=== PATIENT | male | born 1985 | race Caucasian/White ===

== ENCOUNTER → 2018-06-30 | Outpatient (CLI) | payer BC, MEDICAID ==
[2013-11-08 12:06] VITALS: BP 124/95
[~2018-06-30] MED LIST: ADDERALL30 MG PO; AMPHETAMINE MIX PO; ATENOLOL100 MG PO; BACTRIM DS 8001 TAB PO; CARAFATE 1GM1 G PO; CLONAZEPAM1 MG PO; COMPLERA 200 MG1 TAB PO; CYMBALTA 60MG60 MG PO; ENALAPRIL20 MG PO; FLUOXETINE40 MG PO; GABAPENTIN100 MG PO; HALCION0.25 M1 PO; LATUDA60 MG PO; MAALOX MAX + ANT1 ML PO; MARINOL10 MG PO; METOPROLOL SUC100 M1 PO; PERCOCET 325 MG1 TA2 PO; PERCOCET 325 MG1 TAB PO; PROZAC40 MG PO; TOPAMAX100 MG PO; TRAZADONE HYDR100 MG PO; VENTOLIN0.09 MG IH; XANAX1 MG PO; ZOFRAN 8MG8 MG PO; ZYPREXA10 MG PO
[2018-06-30 12:00] LABS: EOS # 0.1 (0.04-0.40); EOS % 1.9 % (0.0-4.0); HEMATOCRIT 38.4 % (42.0-52.0); HEMOGLOBIN 12.9 g/dL (13.5-18.0); LYMPH# 1.9 (1.50-4.00); MEAN CELL VOLUME 88 fl (78-100); MEAN CORPUSCULAR HEMOGLOBIN 29 pg (27-31); MEAN CORPUSCULAR HGB CONC 34 g/dL (33-37); MEAN PLATELET VOLUME 8.7 fl (7.4-10.4); MONO # 0.7 (0.20-0.80); NEU # 3.7 (1.40-6.50); PLATELET COUNT 239 K/mm3 (130-400); RED BLOOD COUNT 4.39 M/mm3 (4.20-5.60); RED CELL DISTRIBUTION WIDTH 14.2 % (11.5-14.5); WHITE BLOOD COUNT 6.4 K/mm3 (4.8-10.8)
[2018-06-30 12:15] LABS: ALBUMIN 4.6 g/dL (3.5-5.0); CALCIUM 9.1 mg/dL (8.4-10.2); POTASSIUM 4.1 mmol/L (3.6-5.0); TOTAL BILIRUBIN 0.7 mg/dL (0.2-1.3); TOTAL PROTEIN 8.1 g/dL (6.3-8.2)
[2018-06-30 13:03] LABS: ERYTHROCYTE SEDIMENTATION RATE 7 mm/hr (0-15)
== END ==
LOC: RAD 11:07
PROVIDERS: Internal Medicine
DX: R51 Headache (principal); G89.18 Other acute postprocedural pain; Z98.890 Other specified postprocedural states